=== PATIENT | male | born 1945 | race Two or more races ===

== ENCOUNTER → 2024-06-26 12:16 | Outpatient (REF) | payer OTHER, MEDICARE, SELFPAY ==
[2024-06-26 12:42] LABS: % Basophils 0.5 % (0-2); % Eosinophils 2.3 % (0-6); % Immature Granulocytes 0.5 % (0-0.5); % Lymphocytes 23.7 % (20.5-51.1); % Monocytes 11.2 % (1.7-9.3); % Neutrophils 61.8 % (42.2-75.2); Absolute Eosinophils 0.1 10^3/uL (0-0.7); Absolute Lymphocytes 0.9 10^3/uL (1.2-3.4); Absolute Monocytes 0.4 10^3/uL (0.1-0.6); Absolute Neutrophils 2.4 10^3/uL (1.4-6.5); Hematocrit 34.2 % (39.0-52.0); Hemoglobin 11.1 g/dL (13.0-18.0); Mean Corp Hgb Conc. 32.5 g/dL (33.0-37.0); Mean Corpuscular Volume 89.3 fL (80.0-94.0); Mean Platelet Volume 12.9 fL (7.4-10.4); Nucleated Red Blood Cells % 0 % (-); Platelet Count 190 10^3/uL (130-400); Red Blood Cell Count 3.83 10^6/uL (4.70-6.10); Red Cell Dist. Width 14.7 % (11.5-14.5); White Blood Cell Count 3.8 10^3/uL (4.8-10.8)
[2024-06-26 12:52] LABS: ALT (SGPT) 10 U/L (0-50); AST (SGOT) 21 U/L (17-59); Albumin 3.4 g/dl (3.5-5.0); Alkaline Phosphatase 67 U/L (38-126); Blood Urea Nitrogen 11 mg/dl (9-20); Carbon Dioxide 27 mmol/L (22-30); Chloride 107 mmol/L (98-107); Glucose 78 mg/dl (70-99); Magnesium 1.9 mg/dl (1.6-2.3); Sodium 144 mmol/L (135-145); Total Bilirubin 0.4 mg/dl (0.2-1.3); Total Protein 5.7 g/dl (6.3-8.2); eGFR > 60.00
[2024-06-26 13:07] LABS: Vitamin D, 25-OH*** 25.3 ng/mL (30-80)
== END ==
LOC: OLABN 12:16
PROVIDERS: ATTENDING PHYSICIAN Student in an Organized Health Care Education/Training Program
DX: I10 Essential (primary) hypertension (principal); R09.02 Hypoxemia; E83.42 Hypomagnesemia; E55.9 Vitamin D deficiency, unspecified
CPT/HCPCS: 36415; 80053; 82306; 83735; 85025

== ENCOUNTER → 2024-07-09 09:21 | Outpatient (REF) | payer OTHER, MEDICARE, SELFPAY ==
[2024-07-09 11:22] LABS: Urine Albumin Negative (Neg - Trace); Urine Bilirubin Negative (Negative); Urine Character Clear (Clear); Urine Color Yellow; Urine Glucose Negative (Negative); Urine Ketone Negative (Negative); Urine Leukocyte 2+ (Negative); Urine Nitrite Negative (Negative); Urine Occult Blood Negative (Negative); Urine Urobilinogen Negative (Neg - 1+)
[2024-07-09 11:32] LABS: Urine Bacteria Many (Negative); Urine Red Blood Cell None Seen /HPF (0-2); Urine White Cell >100 /HPF (0-5)
[2024-07-09 11:33] LABS: Urine Urothelial Cell 0-2 /LPF (FEW)
== END ==
LOC: OLABN 09:21
PROVIDERS: ATTENDING PHYSICIAN Student in an Organized Health Care Education/Training Program
DX: R30.9 Painful micturition, unspecified (principal)
CPT/HCPCS: 81003; 81015; 87077; 87086; 87186

== ENCOUNTER 2024-08-24 03:38 | Emergency (ER) | payer MEDICARE, SELFPAY ==
[2024-08-24] VITALS (9 sets, daily range): BP systolic 109–153; BP diastolic 49–131; BMI 30.1
[2024-08-24 04:07] LABS: % Basophils 0.3 % (0-2); % Eosinophils 0.2 % (0-6); % Immature Granulocytes 0.5 % (0-0.5); % Lymphocytes 4.1 % (20.5-51.1); % Monocytes 3.5 % (1.7-9.3); % Neutrophils 91.4 % (42.2-75.2); Absolute Immature Granulocytes 0.1 10^3/uL (0-0.05); Absolute Lymphocytes 0.4 10^3/uL (1.2-3.4); Absolute Monocytes 0.4 10^3/uL (0.1-0.6); Absolute Neutrophils 9.6 10^3/uL (1.4-6.5); Hematocrit 37.9 % (39.0-52.0); Hemoglobin 12.2 g/dL (13.0-18.0); Mean Corp Hgb Conc. 32.2 g/dL (33.0-37.0); Mean Corpuscular Hgb 28.4 pg (27.0-31.0); Mean Corpuscular Volume 88.1 fL (80.0-94.0); Mean Platelet Volume 11.3 fL (7.4-10.4); Nucleated Red Blood Cells % 0 % (-); Platelet Count 194 10^3/uL (130-400); Red Cell Dist. Width 14.1 % (11.5-14.5); White Blood Cell Count 10.5 10^3/uL (4.8-10.8)
--- NOTE | 2024-08-24 04:19 | ED.GENMED ---
History of Present Illness
General
Chief Complaint: Breathing Problem
Source: patient, ambulance crew and residential
Exam Limitations: none
Time Seen by Provider: 08/24/24 03:56
Nursing documentation reviewed up to this point in time: agreed with
History of Present Illness
History of Present Illness:
Patient presents to ED from residential secondary to shortness of breath, when she woke up from sleep this morning. Patient states that she was feeling 'okay' when she went to sleep initially. Denies previous history of similar symptoms. Denies
chest pain. Denies nausea vomiting. Denies dizziness. Denies recent illness. Denies coughing. Per paramedics, when first arrived at scene, patient was found to be in moderate respiratory distress with hypoxia. Patient placed on 100%
nonrebreather and brought to the hospital, with improvement.
Review of Systems
Review of Systems
Allergies reviewed?: Yes
All Other Systems: ROS reviewed and negative except as documented in HPI and ROS
Constitutional: Reports no symptoms; Denies fever
EENT: Reports no symptoms
Respiratory: Reports trouble breathing; Denies cough
Cardiac: Reports no symptoms
ABD/GI: Reports no symptoms
: Reports no symptoms
Musculoskeletal: Reports no symptoms
Skin: Reports no symptoms
Neurological: Reports no symptoms
Phy Exam
Physical Exam
Physical Exam:
Physical Exam
General: no apparent distress, not acutely ill. afebrile. tachycardic
Head: nc/at. eomi
Neck: supple. no meningeal signs.
Heart: tachycardic, no murmur. equal radial pulses.
Lungs: no acute respiratory distress. diminished breath sounds bilaterally
Abdomen: normal bowel sounds. not tender.
Neuro: alert and oriented x 3. no focal neurological deficits
Skin: no rash
Psychiatric: well kept. interactive and cooperative
Extremities: no edema. no calf tenderness
Scores
Heart Failure Risk
Heart Failure Risk Score: Not Applicable
Course
Orders/Labs/Results
Orders:
Orders
08/24/24 03:47
Electrocardiogram (*1) Urgent
Reason for Study: Other
Other Reason for Exam: Respiratory Distress
Cardiac Monitoring- Treatment ONCE
EKG- Treatment ONCE
IV Insert/Care/Rem.- Treatment PRN
CR Chest - 2 Views Urgent
Comment:
Reason For Exam: respiratory distress
O2 Therapy [RESP] Urgent
Titrate/Wean O2 to maintain O2 sat greater than (%): 93
Special Instructions: TO MAINTAIN CONTINUOUS O2 SATS >/= 93%
Pulse Ox/cont/shift [RESP] Urgent
Quantity: 1
Special Instructions: continuous pulse ox
08/24/24 03:49
Complete Blood Count/With Diff Urgent
Comprehensive Metabolic Panel Urgent
NT-proBNP Urgent
08/24/24 04:39
D-Dimer Urgent
08/24/24 04:57
0.9% Sodium Chloride 500 ml [Nss] 500 ml IV BOLUS
08/24/24 05:40
CT Chest PE Study Urgent
Comment:
Reason For Exam: sob/hypoxia, elevated d-dimer
Abnormal Lab Results
08/24/24 08/24/24
03:49 04:39
RBC 4.30 L 10^6/uL
(4.70-6.10)
Hgb 12.2 L g/dL
(13.0-18.0)
Hct 37.9 L %
(39.0-52.0)
MCHC 32.2 L g/dL
(33.0-37.0)
MPV 11.3 H fL
(7.4-10.4)
Abs Immat Gran (auto) 0.1 H 10^3/uL
(0-0.05)
Absolute Neuts (auto) 9.6 H 10^3/uL
(1.4-6.5)
Absolute Lymphs (auto) 0.4 L 10^3/uL
(1.2-3.4)
Neutrophils % 91.4 H %
(42.2-75.2)
Lymphocytes % 4.1 L %
(20.5-51.1)
D-Dimer 1.31 H ug/mlFEU
(0.00-0.50)
Creatinine 0.5 L mg/dL
(0.6-1.0)
Glucose 123 H mg/dl
(70-99)
AST 49 H U/L
(14-36)
Alkaline Phosphatase 127 H U/L
(38-126)
08/24/24 03:49
08/24/24 03:49
Vital Signs
Initial and Last Documented VS:
Initial Vital Signs
Pulse Resp
117 18
08/24/24 03:42 08/24/24 03:42
Last Documented Vital Signs
Temp Pulse Resp BP Pulse Ox
99.2 F 74 12 121/83 97
08/24/24 08:00 08/24/24 07:00 08/24/24 07:00 08/24/24 09:00 08/24/24 09:00
MDM/Problems Addressed
MDM/Problems Addressed:
Patient remained stable without any distress during observation, with O2 sat on room air greater than 96%. Etiology behind her symptoms, unclear, although possibility of sleep apnea versus panic attack from having just woken up from sleep as a
possibility. Patient otherwise has no complaints at time of discharge, back to residential.
*Critical Care Note
Total Time (30-74mins, 75-104mins- exclusive of procedures): Not Applicable
ED Attending Note
-
Portions of this chart may have been created with voice recognition software.� Occasional wrong word or��sound alike� substitutions may have occurred due to the inherent limitations of voice recognition software.
Discharge Plan
Departure
Patient Disposition: Residential/SNF
Date of Disposition: 08/24/24
Time of Disposition: 06:44
Patient with high blood pressure during this ER visit?: Yes
Discharge Problem:
Dyspnea
Instructions: Shortness of Breath (Dyspnea) (DC)
Referrals:
Jamal Mcgee DO [Family Provider] -
Activity Restrictions/Additional Instructions:
As discussed, you are being discharged back to residential for continual care.
Interventions
Interventions:
*Risk Screen - Suicide Last Done: 08/24/24 03:43
*General Assessment Last Done: 08/24/24 04:41
*Neglect/Abuse Screening Last Done: 08/24/24 03:43
ED- Fall Risk Assessment Last Done: 08/24/24 04:41
*ED COVID-19 Vaccine History Last Done: 08/24/24 03:43
*Nursing Disposition Last Done: 08/24/24 10:20
ED- Cardiac Assessment Last Done: 08/24/24 04:41
ED- Pulmonary Assessment Last Done: 08/24/24 04:41
Discharge Date and Time
Discharge Date/Time: 08/24/24 10:20
Print Language: [id number]
[2024-08-24 04:33] LABS: ALT (SGPT) 26 U/L (0-35); AST (SGOT) 49 U/L (14-36); Albumin 3.9 g/dl (3.5-5.0); Alkaline Phosphatase 127 U/L (38-126); Blood Urea Nitrogen 16 mg/dl (7-17); Calcium 9.3 mg/dl (8.4-10.2); Carbon Dioxide 22 mmol/L (22-30); Chloride 104 mmol/L (98-107); Glucose 123 mg/dl (70-99); Potassium 4.1 mmol/L (3.5-5.1); Sodium 139 mmol/L (135-145); Total Bilirubin 0.8 mg/dl (0.2-1.3); Total Protein 6.5 g/dl (6.3-8.2); eGFR > 60.00
[2024-08-24 04:43] LABS: NT-proBNP 101 pg/ml
[2024-08-24 05:09] LABS: D-Dimer 1.31 ug/mlFEU (0.00-0.50)
[2024-08-24] MEDS: NSS 500 IV (06:08)
== END 2024-08-24 10:20 ==
LOC: EMR 03:38
PROVIDERS: EMERGENCY PHYSICIAN Emergency Medicine; FAMILY PHYSICIAN Student in an Organized Health Care Education/Training Program
DX: R06.09 Other forms of dyspnea (principal); R03.0 Elevated blood-pressure reading, without diagnosis of hypertension
CPT/HCPCS: 99285; 96360; 71046; 71275; 80053; 83880; 85025; 85379; 93005; Q9967

== ENCOUNTER → 2024-11-21 16:07 | Outpatient (REF) | payer MEDICARE, SELFPAY ==
[2024-11-21 16:51] LABS: Urine Albumin 3+ (Neg - Trace); Urine Bilirubin Negative (Negative); Urine Character Slightly Cloudy (Clear); Urine Color Yellow; Urine Glucose Negative (Negative); Urine Ketone Negative (Negative); Urine Leukocyte 3+ (Negative); Urine Nitrite Positive (Negative); Urine Occult Blood 4+ (Negative); Urine Urobilinogen Negative (Neg - 1+)
[2024-11-21 17:04] LABS: Urine Bacteria Many (Negative); Urine Red Blood Cell 0-2 /HPF (0-2); Urine Squamous Cell 0-2 /LPF (Few); Urine White Cell 70-80 /HPF (0-5)
[2024-11-21 17:05] LABS: Urine Calcium Oxalate Crystals Present
== END ==
LOC: OLABN 16:07
PROVIDERS: ATTENDING PHYSICIAN Student in an Organized Health Care Education/Training Program
DX: R30.9 Painful micturition, unspecified (principal)
CPT/HCPCS: 81003; 81015; 87086

== ENCOUNTER → 2024-11-22 21:00 | Outpatient (REF) | payer MEDICARE, SELFPAY ==
[2024-11-23 13:30] LABS: Urine Albumin 2+ (Neg - Trace); Urine Bilirubin Negative (Negative); Urine Character Cloudy (Clear); Urine Color Yellow; Urine Glucose Negative (Negative); Urine Ketone Negative (Negative); Urine Leukocyte 3+ (Negative); Urine Nitrite Negative (Negative); Urine Occult Blood 2+ (Negative); Urine Specific Gravity 1.025 (<1.030); Urine Urobilinogen Negative (Neg - 1+)
[2024-11-23 14:16] LABS: Urine Bacteria Many (Negative); Urine White Cell >100 /HPF (0-5)
[2024-11-23 14:17] LABS: Urine Calcium Oxalate Crystals Seen; Urine Red Blood Cell None Seen /HPF (0-2)
[2024-11-23 14:18] LABS: Urine Squamous Cell None seen /LPF (Few)
== END ==
LOC: OLABP 21:00
PROVIDERS: ATTENDING PHYSICIAN Student in an Organized Health Care Education/Training Program
DX: R30.9 Painful micturition, unspecified (principal)
CPT/HCPCS: 81003; 81015; 87077; 87086

== ENCOUNTER → 2025-03-04 10:14 | Outpatient (REF) | payer MEDICARE, SELFPAY ==
[2025-03-04 12:16] LABS: Hematocrit 35.6 % (37.0-47.0); Hemoglobin 10.9 g/dL (12.0-16.0); Mean Corp Hgb Conc. 30.6 g/dL (33.0-37.0); Mean Corpuscular Volume 86.6 fL (81.0-99.0); Platelet Count 209 10^3/uL (130-400); Red Cell Dist. Width 15.3 % (11.5-14.5)
[2025-03-04 12:45] LABS: Blood Urea Nitrogen 13 mg/dl (7-17); Calcium 9.5 mg/dl (8.4-10.2); Carbon Dioxide 28 mmol/L (22-30); Chloride 108 mmol/L (98-107); Glucose 79 mg/dl (70-99); Potassium 4.0 mmol/L (3.5-5.1); Sodium 142 mmol/L (135-145); eGFR > 60.00
== END ==
LOC: OLABN 10:14
PROVIDERS: ATTENDING PHYSICIAN Student in an Organized Health Care Education/Training Program
DX: R15.9 Full incontinence of feces (principal)
CPT/HCPCS: 36415; 80048; 85027